=== PATIENT | female | born 2000 | race African-American/Black ===

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

== ENCOUNTER 2025-01-20 07:05 | Emergency (ER) | payer BC, SELFPAY ==
[2025-01-20 07:11] VITALS: BP 130/87; PULSE 101; RESP 18; TEMP 36.8; O2SAT 98
--- NOTE | 2025-01-20 07:14 | PC.NURSE ---
ice pack offered and in place
--- NOTE | 2025-01-20 08:24 | ED_ITS ---
HPI - General Adult General Chief complaint: Extremity Injury, Upper Stated complaint: Hand swelling Time Seen by Provider: 01/20/25 07:32 History of Present Illness HPI narrative: 24-year-old female with history of allergic reaction to issue does states last night she was bit by a mosquito. Patient did develop swelling over the dorsum of her left hand. Patient took Benadryl and felt this did not help significantly. Patient is not diabetic. Patient denies any recent illnesses coughs colds or fevers. Patient denies any swelling of her tongue or lips denies any difficulty breathing or swallowing. Related Data Allergies Allergy/AdvReac Type Severity Reaction Status Date / Time No Known Allergies Allergy Unverified 12/11/21 08:52 Review of Systems Review of Systems: All systems reviewed & are unremarkable except as noted in HPI and below PMFSH Family History Family History Other Diabetes mellitus Social History Social History (Updated 12/11/21 @ 08:53 by Kayli Dahl CMA) Smoking status: Never smoker Alcohol intake: never Substance use: never Substance use type: does not use Living arrangements: with family Occupation/Education: unemployed Gender identity (if verbalized by the patient): Female Sexual Orientation (if Verbalized by the Patient): Straight or Heterosexual Exam Narrative: APPEARANCE: Well appearing, no pain, no distress, well-nourished. HEAD: normocephalic, atraumatic. EYES: PERRLA/EOMI, conjunctivae clear. NOSE: Normal no drainage EARS:TMS clear with good light reflex. THROAT: Pharynx clear, no exudate. NECK: Supple. No adenopathy, no masses. RESPIRATORY: Airway patent, respirations nonlabored. Clear to auscultation bilaterally, no rales, rhonchi, wheezing. CARDIOVASCULAR: Regular rate and rhythm without murmurs rubs or gallops. ABDOMINAL: Soft, nontender, nondistended, normal bowel sounds MUSCULOSKELETAL: Swelling of the dorsum of the left hand, neurovascularly intact NEURO: Alert. Cranial nerves II through XII intact. Good gait. Good coordination SKIN: No cellulitis of the affected hand Course Vital Signs Vital signs: Vital Signs Temperature 98.2 F 01/20/25 07:11 Pulse Rate 101 H 01/20/25 07:11 Respiratory Rate 18 01/20/25 07:11 Blood Pressure 130/87 01/20/25 07:11 Pulse Oximetry 98 01/20/25 07:11 Oxygen Delivery Room Air 01/20/25 07:11 Temperature 98.2 F 01/20/25 07:11 Pulse Rate 101 H 01/20/25 07:11 Respiratory Rate 18 01/20/25 07:11 Blood Pressure 130/87 01/20/25 07:11 Pulse Oximetry 98 01/20/25 07:11 Oxygen Delivery Room Air 01/20/25 07:11 Medical Decision Making MDM Narrative Medical decision making narrative: 24-year-old female presenting to the emergency department for evaluation for swelling of her left hand which patient suspects is secondary to a mosquito bite. Patient is neurovascularly intact with no evidence of underlying cellulitis. This does appear to be consistent with a allergic reaction. Patient did take Benadryl last night, emergency department she was treated with additional p.o. Benadryl started on p.o. prednisone. Patient was updated on the results for exam and the treatment plan. Patient was also educated on reasons to return to the emergency department. All questions concerns were addressed. Differential Diagnosis Differential Diagnosis: Cellulitis, edema, allergic reaction, hand fracture Vital Signs Vital Signs: Vital Signs Temperature 98.2 F 01/20/25 07:11 Pulse Rate 101 H 01/20/25 07:11 Respiratory Rate 18 01/20/25 07:11 Blood Pressure 130/87 01/20/25 07:11 Pulse Oximetry 98 01/20/25 07:11 Oxygen Delivery Room Air 01/20/25 07:11 Temperature 98.2 F 01/20/25 07:11 Pulse Rate 101 H 01/20/25 07:11 Respiratory Rate 18 01/20/25 07:11 Blood Pressure 130/87 01/20/25 07:11 Pulse Oximetry 98 01/20/25 07:11 Oxygen Delivery Room Air 01/20/25 07:11 Discharge Plan Discharge Clinical Impression: Allergic reaction to insect bite Patient Disposition: Home Condition: Stable Instructions: Antibiotic Form, Insect Bite or Sting (ED) Additional Instructions: Continue Benadryl today as needed for itching and swelling. You were treated with a dose of prednisone in the emergency department. Continue with the prednisone tomorrow. If you have any worsening symptoms including difficulty breathing or difficulty swallowing then please call or return to the emergency department. Otherwise have close follow-up with her primary care physician. Patient Language: Georgian Prescriptions: New prednisone 50 mg tablet 50 mg PO DAILY 5 Days Qty: 5 0RF No Action norethindrone-e.estradiol-iron [Loestrin Fe 1.5/30 (28-Day)] 1.5 mg-30 mcg (21)/75 mg (7) tablet 1 tablet PO DAILY Qty: 84 0RF ibuprofen 800 mg tablet 800 mg PO BID Qty: 60 4RF Rx Instructions: 3 days before and first 2 days of menstrual cycle take with food fluconazole 150 mg tablet 150 mg PO Q72H Qty: 2 0RF Follow-up/Referrals: PHYSICIAN,[employer] TECHNICIAN [Primary Care Provider] -
[2025-01-20] MEDS: diphenhydrAMINE HCl CAP 25 MG CAPSULE 50 MG PO (08:47)
== END 2025-01-20 08:53 | disposition home or self-care (01) ==
PROVIDERS: Emergency Provider Emergency Medicine
DX: T63.481A Toxic effect of venom of other arthropod, accidental (unintentional), initial encounter (principal)
CPT/HCPCS: 99283; A9270; J7512